=== PATIENT | female | born 1990 | race Caucasian/White ===

== ENCOUNTER 2016-06-07 15:06 | Emergency (ER) | payer MEDICAID, OTHER ==
[~2016-06-07] VITALS: Ht 162.6 cm; Wt 65.0 kg
[~2016-06-07 15:06] MED LIST: PREN1TAB49 PO
[2016-06-07 15:20] VITALS: Ht 162.6 cm; Wt 65.0 kg
[2016-06-07] MEDS ORDERED: morphine 2 MG INJ IV STA (15:49)
[2016-06-07] MEDS ORDERED: ONDANSETRON 4 MG INJ IV STA (15:49)
[2016-06-07] MEDS ORDERED: SOD CHLORIDE 0.9% 1,000 ML IV ONE (16:00)
[2016-06-07 16:13] LABS: HEMATOCRIT 38.5 % (37.0-47.0); HEMOGLOBIN 13.2 g/dl (12.0-16.0); MEAN CORPUSCULAR HEMOGLOBIN 28.9 pg (29.0-33.0); MEAN CORPUSCULAR HGB CONC 34.3 g/dl (32.0-37.0); MEAN CORPUSCULAR VOLUME 84.3 fl (82.0-101.0); MEAN PLATELET VOLUME 7.4 fl (7.4-10.4); PLATELET COUNT 175 10^3/UL (140-440); RED BLOOD COUNT 4.57 10^6/ul (4.20-5.40); UNCORRECTED WBC 17.8 10^3/ul (4.8-10.8); WHITE BLOOD COUNT 17.8 10^3/ul (4.8-10.8)
[2016-06-07 16:15] LABS: CONDITION 1; LH ANALYZER COMMENTS 1
[2016-06-07 16:18] LABS: ADD UMIC YES; URINE BILIRUBIN (Dip) 1+ (NEGATIVE); URINE BLOOD (Dip) 3+ (NEGATIVE); URINE COLOR DK. YELLOW (YELLOW); URINE GLUCOSE (Dip) NEGATIVE (NEGATIVE); URINE KETONES (Dip) 40 (NEGATIVE); URINE LEUKOCYTE ESTERASE (Dip) NEGATIVE (NEGATIVE); URINE NITRITE (Dip) NEGATIVE (NEGATIVE); URINE TOTAL PROTEIN (Dip) 2+ (NEGATIVE); URINE UROBILINOGEN (Dip) 1.0 E.U./dL (0.1-1.0)
[2016-06-07 16:22] LABS: POTASSIUM 3.1 mmol/L (3.5-5.1)
[2016-06-07 16:25] LABS: ALBUMIN/GLOBULIN RATIO 1.17; BILIRUBIN,INDIRECT 0.4 mg/dl (0-1.1); BILIRUBIN,TOTAL 0.4 mg/dl (0.2-1.3); CREATININE 0.67 mg/dl (0.44-1.00); TOTAL PROTEIN 7.4 g/dl (6.1-8.1)
[2016-06-07 16:29] LABS: ICTOTEST NEGATIVE (NEGATIVE)
[2016-06-07 16:30] LABS: BACTERIA,URINE MODERATE; SQUAMOUS EPITHELIAL CELL,UR MODERATE; URINE RBCS >50 /HPF (0)
[2016-06-07 16:59] LABS: LYMPHOCYTES # 0.7 10^3/ul (0.8-2.9); MONOCYTE # 0.5 10^3/ul (0.3-0.9)
--- NOTE | 2016-06-07 17:32 | ERD ---
ER Documentation Chief Complaint Date/Time DATE: 06/07/16 TIME: 17:21 Chief Complaint abdominal pain and fever x 2 days HPI The patient is a 25-year-old female here with fever, chills, body aches, dry cough, headache, and abdominal pain 2 days. She has been taking Tylenol at home for her fever, body aches, and headache. She states that her abdominal pain started yesterday around her umbilicus, but moved to her bilateral lower quadrants last night. Her abdominal pain has been getting worse and she rates it as an 8/10 and constant. She reports anorexia and her last meal was 2 pieces of toast yesterday morning. She has not had an appetite which she relates to her abdominal pain. She denies nausea, vomiting, diarrhea, vaginal discharge, and dysuria. She denies chest pain, difficulty breathing, sore throat, earache, or any other symptoms or concerns at this time. She reports sick contacts at home with cough. She denies international travel. She denies smoking. ROS All systems reviewed and are negative except as per history of present illness. Medications Home Meds Active Scripts Tramadol HCl (Tramadol HCl) 50 Mg Tablet, 50 MG PO Q6 Y for PAIN, #9 TAB Prov:DONALD BROWN, CARGO AND CONTAINER INSPECTOR 06/07/16 Phenazopyridine Hcl* (Pyridium*) 100 Mg Tab, 100 MG PO TID Y for URINARY PAIN, # 8 TAB Prov:DONALD BROWN, [employer] AND CONTAINER INSPECTOR 06/07/16 Nitrofurantoin Monohyd Macrocr* (Macrobid*) 100 Mg Capsr, 100 MG PO BID for 7 Days, CAP Prov:DONALD BROWN, [employer] AND CONTAINER INSPECTOR 06/07/16 Acetaminophen* (Tylenol*) 325 Mg Tablet, 2 TAB PO Q6 Y for PAIN AND OR ELEVATED TEMP, #30 TAB Prov:DONALD BROWN, [employer] CONTAINER INSPECTOR 06/07/16 Reported Medications Vits W-Ca,Fe,Fa(<1MG) () 1 Tab Tablet, 1 TAB PO DAILY, #1 07/29/12 Allergies Allergies: Coded Allergies: No Known Drug Allergy (Verified Allergy, Mild, 04/14/12) PMhx/Soc History of Surgery: No Anesthesia Reaction: No Hx Neurological Disorder: No Hx Respiratory Disorders: Yes (ASTHMA) Hx Cardiac Disorders: No Hx Psychiatric Problems: No Hx Miscellaneous Medical Probl: No Hx Alcohol Use: No Hx Substance Use: No Hx Tobacco Use: No Smoking Status: Never smoker Physical Exam Vitals Vital Signs Date Time Temp Pulse Resp B/P Pulse Ox O2 Delivery O2 Flow Rate FiO2 06/07/16 18:21 98.1 87 18 118/78 98 Room Air 06/07/16 15:20 100.0 113 18 108/67 98 Physical Exam INITIAL VITAL SIGNS: Reviewed by me, afebrile, mild tachycardia GENERAL: Alert. Well developed and well nourished. No respiratory distress HEAD: Head is normocephalic. Atraumatic. EYES: EOMI. PERRL. No scleral icterus. No conjunctival injection. ENT: External ears, nose, and mouth normal. Nasal passages patent. Moist mucous membranes. NECK: Supple. Full range of motion. Trachea midline. RESPIRATORY: No tachypnea. Clear to auscultation bilaterally. No wheezing, rales , or rhonchi. CV: Regular rate and rhythm. No murmurs, rubs, or gallops ABDOMEN: + Bilateral lower quadrant pain with palpation. + Rebound. + McBurney 's point tenderness. + Obturator sign. Negative psoas sign. Soft, non- distended. Bowel sounds normal in all quadrants. BACK: No CVA tenderness. Full ROM. EXTREMITIES: No obvious deformity. No clubbing or cyanosis. No edema. SKIN: Warm and dry. No diaphoresis. No obvious rashes or lesions. NEUROLOGIC: Alert and oriented x 3. Appropriate. Face is symmetric. Speech is normal. Moves all extremities equally. Result Diagram: 06/07/16 1602 06/07/16 1602 Results 24 hrs Laboratory Tests Test 06/07/16 16:02 Alanine Aminotransferase (ALT/SGPT) 16IU/L Albumin 4.0g/dl Albumin/Globulin Ratio 1.17 Alkaline Phosphatase 52IU/L Anion Gap 17 Aspartate Amino Transf (AST/SGOT) 12IU/L Basophils # 10^3/ul Basophils % % Blood Morphology Comment Blood Urea Nitrogen 6mg/dl Calcium Level 9.0mg/dl Carbon Dioxide Level 21mmol/L Chloride Level 102mmol/L Creatinine 0.67mg/dl Direct Bilirubin 0.00mg/dl Eosinophils # 10^3/ul Eosinophils % % Globulin 3.40g/dl Glucose Level 140mg/dl Hematocrit 38.5% Hemoglobin 13.2g/dl Indirect Bilirubin 0.4mg/dl Lipase 21U/L Lymphocytes # 0.710^3/ul Lymphocytes % 4.0% Mean Corpuscular Hemoglobin 28.9pg Mean Corpuscular Hemoglobin Concent 34.3g/dl Mean Corpuscular Volume 84.3fl Mean Platelet Volume 7.4fl Monocytes # 0.510^3/ul Monocytes % 3.0% Neutrophils # 15.010^3/ul Neutrophils % 84.0% Nucleated Red Blood Cells # 10^3/ul Nucleated Red Blood Cells % 0.0/100WBC Platelet Count 97387^3/UL Potassium Level 3.1mmol/L Red Blood Count 4.5710^6/ul Red Cell Distribution Width 13.0% Sodium Level 137mmol/L Total Bilirubin 0.4mg/dl Total Protein 7.4g/dl Urine Bacteria MODERATE Urine Bilirubin 1+ Urine Clarity SLIGHTLY CLOUDY Urine Color DK. YELLOW Urine Glucose NEGATIVE% Urine Hemoglobin 3+ Urine Ictotest NEGATIVE Urine Ketones 40 Urine Leukocyte Esterase NEGATIVE Urine Microscopic RBC >50/HPF Urine Microscopic WBC >50/HPF Urine Nitrite NEGATIVE Urine Specific [place] >=1.030 Urine Squamous Epithelial Cells MODERATE Urine Total Protein 2+ Urine Urobilinogen 1.0 E.U./dL Urine pH 6.0 White Blood Count 17.810^3/ul Current Medications Medications (Trade) Dose Ordered Sig/Sophie Route PRN Reason Start Time Stop Time Status Last Admin Dose Admin Morphine Sulfate (morphine) 2 mg ONCE STAT IV 06/07/16 15:49 06/07/16 15:54 DC 06/07/16 16:04 Ondansetron HCl 4 mg 4 mg ONCE STAT IV 06/07/16 15:49 06/07/16 15:54 DC 06/07/16 16:04 Sodium Chloride (NS) 1,000 ml @ 1,000 mls/hr Q1H ONCE IV 06/07/16 16:00 06/07/16 16:59 DC 06/07/16 16:04 Morphine Sulfate (morphine) 2 mg ONCE ONCE IV 06/07/16 18:00 06/07/16 18:01 DC 06/07/16 17:40 IV Flush 10 ml 10 ml STK-MED ONCE .ROUTE 06/07/16 17:38 06/07/16 17:39 DC 06/07/16 17:45 Sodium Chloride (NS) 100 ml @ ud STK-MED ONCE .ROUTE 06/07/16 17:38 06/07/16 17:39 DC 06/07/16 17:48 Iohexol (Omnipaque 300mg/ ml) 150 ml STK-MED ONCE .ROUTE 06/07/16 17:38 06/07/16 17:39 DC 06/07/16 17:47 Potassium Chloride (Klor-Con 20) 40 meq ONCE STAT PO 06/07/16 17:55 06/07/16 17:57 DC 06/07/16 18:00 Procedures/MDM Nursing Notes Reviewed Previous Medical Records requested via [employer]. EMERGENCY DEPARTMENT COURSE / MEDICAL DECISION MAKING: The patient comes to the ED secondary to fever, body aches, dry cough, headache , and abdominal pain 2 days. Differential diagnosis upon initial evaluation includes but is not limited to: Appendicitis, diverticulitis, URI, tubo-ovarian abscess, and others. The case was discussed with supervising physician Dr. Morrell. Per Dr. Roberts, ordered CT abdomen and pelvis with contrast. The patient was treated with normal saline IV 1 L, morphine 4 mg IV, morphine 2mg IV, zofran 4mg IV. K-dur 40mEqu PO. CBC: WBC 17, no e/o of severe anemia or severe infection CMP: no e/o severe acidosis, alkalosis, renal failure, diabetic ketoacidosis, liver disease. potassium 3.1 Lipase: no e/o pancreatitis Urine: + infection, + hematuria Urine : negative Otherwise within normal limits, unremarkable, or as documented above. CT abdomen and pelvis per radiology report: unremarkable CT scan of the abdomen and pelvis. At this time, there is no evidence for acute surgical abdomen. The case was discussed with Dr. Nielsen, and it was decided that the patient is an appropriate candidate for outpatient management and follow-up at this time as her CT scan was unremarkable. Final impression: 1. UTI 2.URI Based on patient's history of present illness and physical examination the decision was made to discharge. The patient was re-evaluated after ED treatment and stabilizing measures, and symptoms have improved. There is no evidence of life threatening injuries or illnesses at this time. On re-examination, patient resting in no distress, stable vital signs, reports feeling better and safe for discharge with outpatient follow up with PMD in 1-2 days. Patient given return precautions. She verbalized understanding and agreed to return precautions. All of her questions and concerns were addressed prior to discharge. She agrees with the plan of care. Prescriptions macrobid tylenol tramadol Departure Diagnosis: Primary Impression: Abdominal pain Abdominal location: lower abdomen, unspecified Qualified Code: R10.30 - Lower abdominal pain Additional Impression: URI (upper respiratory infection) URI type: unspecified viral URI Qualified Code: J06.9 - Viral upper respiratory tract infection Condition: Stable DONALD BROWN NP Jun 07, 2016 17:32
[2016-06-07] MEDS ORDERED: SOD CHLORIDE 0.9% 100 ML ONE (17:38)
[2016-06-07] MEDS ORDERED: IOHEXOL 300MG/ML 150 ML BTL ONE (17:38)
[2016-06-07] MEDS ORDERED: POTASSIUM CHLORIDE (SR) 20 MEQ TAB PO STA (17:55)
--- NOTE | 2016-06-07 17:58 | RADRPT ---
PROCEDURE: CT Abdomen and Pelvis with contrast. CLINICAL INDICATION: Abdomen and pelvis pain. Fever. TECHNIQUE: CT scan of the abdomen and pelvis with contrast was performed. The patient was scanned following the uncomplicated intravenous administration of 90 cc of Omnipaque-300. Coronal and sagit pardeep reformatted images were obtained from the axial source images. Images were reviewed on a [employer] PACS workstation. Total exam DLP is 361.64 mGy-cm. CTDIvol is 7.46 mGy. One or more of t he following dose reduction techniques were used: Automated exposure control, adjustment of the mA a nd/or kV according to patient size, use of iterative reconstruction technique. COMPARISON: None. FINDINGS: The lung bases are normal. There is no pleural effusion. The liver is normal in size and attenuation. There is no focal hepatic lesion. The gallbladder and bile ducts are normal. The spleen is normal in size. There is no focal splenic lesion. Both adrenals are normal with no enlargement or mass. The pancreas is unremarkable with no mass or evidence of pancreatitis. Both kidneys demonstrate normal contrast enhancement. There is no renal mass or hydronephrosis. The abdominal aorta is not dilated. There is no retroperitoneal lymphadenopathy or mass. There is no pelvic lymphadenopathy or mass. The bladder and distal ureters are normal. The periappendiceal region is unremarkable with no evidence of appendicitis. The bowel and mesentery are normal. There is no free fluid or free gas. The osseous structures are unremarkable with no fracture or lytic lesion. IMPRESSION: 1. Unremarkable CT scan of the abdomen and pelvis. RPTAT: QQ .Darian Chaudhry MD, Date Time Electronically viewed and signed by .Darian Chaudhry MD, MD on 06/07/2016 17:58 .R/
[2016-06-07] MEDS ORDERED: morphine 2 MG INJ IV ONE (18:00)
[2016-06-07] MEDS ORDERED: PHEN-537 PO (18:10)
[2016-06-07] MEDS ORDERED: NITR-58 PO (18:10)
[2016-06-07] MEDS ORDERED: ULT50 PO (18:10)
[2016-06-07] MEDS ORDERED: ACET325T33 PO (18:10)
[2016-06-07 18:21] VITALS: BP 118/78; PULSE 87; RESP 18; TEMP 98.1
== END 2016-06-07 18:23 | disposition home or self-care (01) ==
LOC: FTE 15:06
DX: R10.30 Lower abdominal pain, unspecified (principal); J06.9 Acute upper respiratory infection, unspecified; J45.909 Unspecified asthma, uncomplicated
CPT/HCPCS: 36415; 74177; 80053; 81001; 83690; 85025; 96374; 96375; 96376; J2270; J2405; J7030; Q9967; Z7502; Z7610; 81003

== ENCOUNTER 2016-06-16 06:56 | Emergency (ER) | payer OTHER ==
[~2016-06-16] VITALS: Ht 157.5 cm; Wt 58.2 kg
[~2016-06-16 06:56] MED LIST changes: +ACET325T33 PO; +NITR-58 PO; +PHEN-537 PO; +ULT50 PO
[2016-06-16 06:59] VITALS: Ht 157.5 cm; Wt 58.2 kg
[2016-06-16 08:01] LABS: ADD UMIC YES; URINE BILIRUBIN (Dip) NEGATIVE (NEGATIVE); URINE BLOOD (Dip) 1+ (NEGATIVE); URINE COLOR LT. YELLOW (YELLOW); URINE GLUCOSE (Dip) NEGATIVE (NEGATIVE); URINE KETONES (Dip) NEGATIVE (NEGATIVE); URINE LEUKOCYTE ESTERASE (Dip) 2+ (NEGATIVE); URINE NITRITE (Dip) NEGATIVE (NEGATIVE); URINE TOTAL PROTEIN (Dip) NEGATIVE (NEGATIVE); URINE UROBILINOGEN (Dip) 0.2 E.U./dL (0.1-1.0)
[2016-06-16 08:21] LABS: BACTERIA,URINE MODERATE
[2016-06-16 08:22] LABS: SQUAMOUS EPITHELIAL CELL,UR FEW
--- NOTE | 2016-06-16 08:48 | RADRPT ---
PROCEDURE: US Pelvis. CLINICAL INDICATION: Pelvic pain. TECHNIQUE: Multiple transabdominal and transvaginal sonographic images of the pelvis were obtained . COMPARISON: 06/07/2016. FINDINGS: The uterus is slightly retroflexed in position and measures 8.6 x 4.8 x 5.8 cm (125 cc). The endome trial complex is homogeneous in echogenicity and measures 6.3 mm. The cervix is normal. There is t race free pelvic fluid. The right and left ovaries are symmetric in size with Doppler flow. The right ovary measures 3.0 x 1.3 x 1.9 cm (3.8 cc). The left ovary measures 3.1 x 1.7 x 2.0 cm (5.7 cc). IMPRESSION: Unremarkable pelvic ultrasound. RPTAT: PP .Sepideh Escobar MD, Date Time Electronically viewed and signed by .Sepideh Escobar MD, on 06/16/2016 08:47 .T/
[2016-06-16] MEDS ORDERED: CEPH-443 PO (09:05)
--- NOTE | 2016-06-16 09:12 | ERD ---
ER Documentation Chief Complaint Date/Time DATE: 06/16/16 TIME: 09:10 Chief Complaint pelvic pain x 1 week HPI Patient is a 25-year-old female who presents with left-sided lower pelvic pain that she has had for one week. She was seen here previously and treated with Macrobid for UTI which she finished a few days ago with improvement however symptoms return. She denies any vaginal bleeding. Denies fever. Denies any nausea or vomiting. Denies any abnormal or malodorous discharge. Denies any recent a protective sex. She states she "has pain in her left ovary " ROS All systems reviewed and are negative except as per history of present illness. Medications Home Meds Active Scripts Cephalexin* (Keflex*) 500 Mg Capsule, 500 MG PO BID for 7 Days, CAP Prov:RJ BRITO PA-C 06/16/16 Tramadol HCl (Tramadol HCl) 50 Mg Tablet, 50 MG PO Q6 Y for PAIN, #9 TAB Prov:DONALD BROWN, HEALTH CARE TECHNICIAN 06/07/16 Phenazopyridine Hcl* (Pyridium*) 100 Mg Tab, 100 MG PO TID Y for URINARY PAIN, # 8 TAB Prov:DONALD BROWN, HEALTH CARE TECHNICIAN 06/07/16 Nitrofurantoin Monohyd Macrocr* (Macrobid*) 100 Mg Capsr, 100 MG PO BID for 7 Days, CAP Prov:DONALD BROWN, HEALTH CARE TECHNICIAN 06/07/16 Acetaminophen* (Tylenol*) 325 Mg Tablet, 2 TAB PO Q6 Y for PAIN AND OR ELEVATED TEMP, #30 TAB Prov:DONALD BROWN HEALTH CARE TECHNICIAN 06/07/16 Reported Medications Vits W-Ca,Fe,Fa(<1MG) () 1 Tab Tablet, 1 TAB PO DAILY, #1 07/29/12 Allergies Allergies: Coded Allergies: latex (Verified Allergy, Intermediate, RASH, 06/16/16) PMhx/Soc History of Surgery: No Anesthesia Reaction: No Hx Neurological Disorder: No Hx Respiratory Disorders: Yes (ASTHMA) Hx Cardiac Disorders: No Hx Psychiatric Problems: No Hx Miscellaneous Medical Probl: No Hx Alcohol Use: No Hx Substance Use: No Hx Tobacco Use: No Smoking Status: Never smoker FmHx Family History: No diabetes Physical Exam Vitals Vital Signs Date Time Temp Pulse Resp B/P Pulse Ox O2 Delivery O2 Flow Rate FiO2 06/16/16 06:59 97.4 90 18 118/68 99 Physical Exam General: well developed, well nourished, alert, nontoxic, no distress Head: normocephalic, atraumatic Neck: Supple, nontender, no lymphadenopathy, no midline tenderness Respiratory: Clear to auscaultation bilaterally, speaks in full sentences, no use of accesory muscles or labored breathing, no rales, ronchi, or wheezing Cardiovascular: RRR, No murmurs GI: soft, non tender, non distended, negative murphys sign, negative mcburneys point tenderness, no cva tenderness bilaterally, no rebound or guarding Back: no midline tenderness, no step offs or bony abnormalities, sensation to light touch in tact Results 24 hrs Laboratory Tests Test 06/16/16 07:50 Urine Bacteria MODERATE Urine Bilirubin NEGATIVE Urine Clarity CLEAR Urine Color LT. YELLOW Urine Glucose NEGATIVE% Urine Hemoglobin 1+ Urine Ketones NEGATIVE Urine Leukocyte Esterase 2+ Urine Microscopic RBC 2-5/HPF Urine Microscopic WBC 25-50/HPF Urine Nitrite NEGATIVE Urine Specific [place] 1.020 Urine Squamous Epithelial Cells FEW Urine Total Protein NEGATIVE Urine Urobilinogen 0.2 E.U./dL Urine pH 6.0 Procedures/MDM 25-year-old female has lower pelvic pain on the left side for one week. She was recently treated and completed a course of antibiotics for urinary tract infection with some improvement however symptoms have returned. Her GI examination is normal she has no tenderness throughout palpation. Urine was negative for and urine did show evidence of still having UTI. Ultrasound pelvic was negative and there is no evidence of ovarian torsion, ovarian cyst, fibroids, or PID. Patient is discharged with Keflex.Recommended this patient follow up with her primary care doctor within 48 hours or return to the emergency room for any worsening of symptoms. However this time I do believe there is suitable for outpatient management. I answered all their questions and they agreed with the plan and were discharged home. Departure Diagnosis: Primary Impression: Cystitis Condition: Stable Patient Instructions: Cystitis Additional Instructions: Call your primary care doctor TOMORROW for an appointment during the next 1-2 days.See the doctor sooner or return here if your condition worsens before your appointment time. RJ BRITO PA-C Jun 16, 2016 09:12
[2016-06-16 09:30] VITALS: BP 114/70; PULSE 78; RESP 16; TEMP 98.1
== END 2016-06-16 09:30 | disposition home or self-care (01) ==
LOC: FTE 06:56
DX: N30.90 Cystitis, unspecified without hematuria (principal); J45.909 Unspecified asthma, uncomplicated; Z91.040 Latex allergy status
CPT/HCPCS: 76830; 76856; 81001; Z7502; 81003